=== PATIENT | female | born 1995 | race Caucasian/White ===

== ENCOUNTER → 2018-03-29 | Outpatient (CLI) | payer BC ==
[~2018-03-29] MED LIST: CEPH500C24 PO; ETHI1TAB16 PO; FLUC150T40 PO; SULF-198 PO
--- NOTE | 2018-03-29 14:04 | RADIOLOGY IMAGING REPORT ---
FACILITY: [facility] [place] PATIENT NAME: Dana Geller : 1995 MR: [id number] V: [id number] EXAM DATE: ORDERING PHYSICIAN: KIRSTEN CHAN TECHNOLOGIST: Location: [facility] Patient: Dana Geller : 1995 Visit/Account:[id number] Date of Sevice: 03/29/2018 CERVICAL SPINE 2 OR 3 VIEW HISTORY: Blurred vision, pain since October 2017, increased frequency COMPARISON: None. FINDINGS: Prevertebral soft tissues appear within normal limits. Bony alignment anatomic without fracture or d estructive osseous process. No significant underlying degenerative change. Lung apices are clear. Odontoid view is symmetric. IMPRESSION: No acute osseous finding involving the cervical spine. Report Dictated By: Chau Shaver MD at 03/29/2018 2:00 PM Report E-Signed By: Chau Shaver MD at 03/29/2018 2:01 PM [id number]:[email or web address]
== END ==
LOC: RAD 11:26
PROVIDERS: ATTEND Family Medicine
DX: H53.10 Unspecified subjective visual disturbances (principal)
CPT/HCPCS: 72040

== ENCOUNTER → 2018-04-27 | Outpatient (CLI) | payer BC ==
[~2018-04-27] MED LIST changes: +NORE0.3536 PO
--- NOTE | 2018-04-27 12:53 | RADIOLOGY IMAGING REPORT ---
FACILITY: [facility] PATIENT NAME: Dana Geller : 1995 MR: [id number] V: [id number] EXAM DATE: ORDERING PHYSICIAN: AMBER CROFT TECHNOLOGIST: Location: [facility] [place] Patient: Dana Geller : 1995 Visit/Account:[id number] Date of Sevice: 04/27/2018 EXAMINATION: MRI Brain without intravenous contrast HISTORY: Blurry vision. Facial paresthesias. Numbness and tingling in the left hand. COMPARISON: None available. TECHNIQUE: Multi-planar, multi-sequence brain MRI was performed without IV contrast administration. FINDINGS: Brain volume: Normal. Sagittal midline structures: Negative. Ventricles: Negative. Acute ischemic changes: None. Hemorrhage: None. Masses / edema: None. Agrawal-white: Negative. White matter: Negative. Vessels: Negative. Extra-axial: Negative. Calvarium / scalp: Negative. Skull base: Negative. Visualized sinuses / orbits: Mild mucosal thickening in the right maxillary sinus and lateral portio n of the left sphenoid sinus. Visualized upper neck: Negative. IMPRESSION: 1. Mild mucosal thickening in the right maxillary sinus and lateral portion of the left sphenoid sinu s. 2. Otherwise normal noncontrast brain MRI. Report Dictated By: Kolby Hays MD at 04/27/2018 12:43 PM Report E-Signed By: Kolby Hays MD at 04/27/2018 12:49 PM [id number]:[email or web address]
== END ==
LOC: MRI 00:14
PROVIDERS: ATTEND Physician Assistant Medical
DX: J32.0 Chronic maxillary sinusitis (principal)
CPT/HCPCS: 70551